=== PATIENT | female | born 1980 | race Caucasian/White ===

== ENCOUNTER → 2021-02-02 07:42 | Outpatient (CLI) | payer BC, SELFPAY ==
[2021-02-02 09:12] LABS: Urine Pregnancy, HCG Qual. Negative (Negative)
== END ==
PROVIDERS: Visit Provider Internal Medicine Gastroenterology
DX: K21.9 Gastro-esophageal reflux disease without esophagitis (principal); Z01.812 Encounter for preprocedural laboratory examination; Z20.822 Contact with and (suspected) exposure to COVID-19
CPT/HCPCS: 36415; 81025; U0003

== ENCOUNTER 2021-02-04 08:18 | Day surgery (SDC) | payer BC, SELFPAY ==
[2021-01-26 13:23] VITALS: BMI 31.0
[2021-02-04] VITALS (7 sets, daily range): BP systolic 98–123; BP diastolic 41–83; PULSE 62–113; RESP 16–18; TEMP 36.4–36.5; O2SAT 96–100
--- NOTE | 2021-02-04 09:25 | P.PN_ITS ---
[facility] Anesthesia Checklist - Patient Identification Patient Identification: Arm Band - Structural Data Admitted From: Home Planned Operative Procedure/s: egd Consent for Planned Operative Procedure(s) Verified: Yes Verified Documents: Surgical Consent, History and Physical - NPO Status Verified Time NPO: 00:00 - Additional verifications Anesthesia Reactions: No - Airway Assessment C-Spine Mobility Assessed: Yes (mp2) TMJ Mobility Assessed: Yes Dentition: Good Dentition - Neurological Assessment Level of Consciousness: Awake, Alert - Anesthesia Plan Anesthesia Risk discussed: Yes Anesthesia Plan: Verified ASA Class: II Anesthesia Type: MAC [facility] History I have reviewed the patient's past medical history: Yes Medical History: Reports:: Gastroesophageal Reflux Disease(GERD) Denies:: Cancer, Diabetes Mellitus Type 1, Diabetes Mellitus Type 2, MRSA, Seizures *Have you ever received a pneumonia vaccine?: No *Have you received a flu vaccine this season?: No Other Medical History: Reports: Hypothyroidism Anesthesia experience/problems:: nac Other Surgeries: Yes: Colonoscopy, EGD Amputation: No - *Social History Last grade of school completed: Advanced degree Smoking Status: Never smoker Alcohol Intake: never Substance Use Type: denies use *Occupational Status:: employed Housing: house *Travel in the last 8 weeks: None Family Hx:: Non-contributory
--- NOTE | 2021-02-04 09:37 | HMH.PROC ---
[facility] Procedure Note Procedure Note:: Upper Endoscopy Procedure Report: Esophagogastroduodenoscopy with cold biopsies and TTS balloon dilation Endoscopost: Yanick Maki II, MD Referring Physician: Alondra Osborne DO Date of Procedure: February 04, 2021 Equipment: Olympus GIF 190 standard upper endoscope Sedation: MAC sedation Indications: Mrs. Oscar is a 41-year-old female with GERD and cough. She has had longstanding dyspepsia. She has epigastric abdominal discomfort and reflux with postprandial bloating, fullness and early satiety. She has had some globus sensation with intermittent dysphagia. She feels as if her throat closes after eating. 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 She continues to have incomplete bowel evacuation. She tried probiotics. She did have an EGD with me in November 2010 with reactive gastropathy and nonerosive GERD. Procedure: Prior to the procedure, a history and physical exam was performed, and patient's medications and allergies were reviewed. The risks, benefits and alternatives of the sedation and procedure were discussed with the patient. All questions were answered and informed consent was obtained. The patient was brought to the procedure room. Patient identification and proposed procedure were verified by the physician and the nurse. The patient was placed in a left lateral decubitus position and the scope was passed under direct vision. Throughout the procedure, the patient's blood pressure, pulse, and oxygen saturations were monitored continuously. The upper GI endoscopy was accomplished without difficulty. The patient tolerated the procedure well. Findings: The scope was passed directly into the upper esophagus and advanced to the third portion of the duodenum. The post bulbar duodenum and duodenal bulb were normal with normal mucosa and conniventes. There was mild duodenal lymphoid stasis. The scope was withdrawn through a normal duodenal bulb and pylorus into the stomach. There was some bile reflux with mild linear reactive gastropathy of the antrum and body. The remainder of the fundus of the stomach was grossly normal. Upon retroflexion there was a very small sliding 1 to 2 cm hiatal hernia. 2 biopsies were taken in the antrum and along the lesser curvature for histology to rule out gastritis and/or H pylori. The scope was then withdrawn into the esophagus. There was grade A reflux esophagitis (LA classification) but no evidence of Mathis's esophagus or Schatzki's ring. There were tertiary contractions and evidence of moderate esophageal dysmotility. The entire esophagus was dilated to 60 Syriac/20 mm with a TTS hydrostatic balloon. There was some resistance at the cricopharyngeus. The remainder of the esophageal mucosa was normal. Impression: 1. Cricopharyngeal spasm status post dilation to 20 mm 2. Grade A reflux esophagitis with moderate esophageal dysmotility and very small sliding 1 to 2 cm hiatal hernia 3. Bile reflux with linear reactive gastropathy 4. Mild duodenal lymphoid stasis Plan: I will follow-up the biopsies. The patient does have functional dyspepsia and functional GERD. We will discuss additional dietary measures and treatment options. I would continue the soft fiber diet and fiber bowel regimen (combined MiraLAX plus Konsyl). We will discuss promotility therapy.
== END 2021-02-04 10:35 | disposition home or self-care (01) ==
LOC: OUTP 08:26
PROVIDERS: PCP Family Medicine; Visit Provider Internal Medicine Gastroenterology
PROC: 0DJ08ZZ Inspection of Upper Intestinal Tract, Via Natural or Artificial Opening Endoscopic (ICD-10-PCS; CPT 43235; principal; 2021-02-04 10:30)
DX: J39.2 Other diseases of pharynx (principal); K20.80 Other esophagitis without bleeding; K22.4 Dyskinesia of esophagus; K44.9 Diaphragmatic hernia without obstruction or gangrene; K31.9 Disease of stomach and duodenum, unspecified; E03.9 Hypothyroidism, unspecified; Z88.6 Allergy status to analgesic agent; Z79.899 Other long term (current) drug therapy
CPT/HCPCS: 43239; 43249; C1726

== ENCOUNTER → 2021-04-25 08:51 | Outpatient (POV) | payer BC, SELFPAY | PROVIDERS: Visit Provider Nurse Practitioner Family | DX: Z00.00 Encounter for general adult medical examination without abnormal findings (principal) ==